=== PATIENT | male | born 1965 | race Caucasian/White ===

== ENCOUNTER 2016-06-24 00:27 | Day surgery (SDC) | payer OTHER ==
[~2016-06-24] VITALS: Ht 172.7 cm; Wt 79.4 kg
[2016-06-24] MEDS ORDERED: Sodium Chloride LOK Flush 10 mL Syringe IV PRN (06:00)
[2016-06-24] MEDS ORDERED: fentaNYL-PF 50 mCg/mL 2 mL Inj IVPUSH PRN (06:00)
[2016-06-24] MEDS ORDERED: 0.9% Sodium Chloride 1,000 ML IV SCH (06:00)
[2016-06-24] MEDS ORDERED: No current meds (09:06)
[2016-06-24 09:08] VITALS: BP 137/90; PULSE 68; RESP 16; O2SAT 97
[2016-06-24 09:51] VITALS: BP 104/63; PULSE 69; RESP 14; O2SAT 95
[2016-06-24 10:00] VITALS: BP 110/65; PULSE 73; RESP 14; O2SAT 97
[2016-06-24 10:08] VITALS: BP 108/65; PULSE 68; RESP 14; O2SAT 97
[2016-06-24 10:18] VITALS: BP 117/78; PULSE 72; RESP 16; O2SAT 98
[2016-06-24 10:28] VITALS: BP 115/81; PULSE 63; RESP 14; O2SAT 96
--- NOTE | 2016-06-24 12:59 | ENDO ---
[address] [address] ENDOSCOPY PROCEDURE PATIENT: FITO RUSSELL : 1965 MR#: [id number] ADMIT: 06/24/2016 JOB ID: [id number] DATE: 06/24/2016 PROCEDURE: Colonoscopy. INDICATIONS: Screening. The patient's ASA classification is 1. Mallampati score was 1. MEDICATIONS: 1. Versed 4 mg. 2. Fentanyl 100 mcg. INSTRUMENT USED: PCF H 180 AL. PREPARATION QUALITY: Was good. PROCEDURE DETAILS: After informed consent was obtained, the patient was brought into the GI suite, where he was placed on oxygen via nasal cannula and monitored with continuous pulse oximeter, telemetry and blood pressure monitoring. A time-out was performed. Then, he was placed in the left lateral decubitus position and medications were administered for sedation. Digital rectal examination with palpation of the prostate was performed, which was unremarkable. The colonoscope was then inserted into the rectum and advanced under direct visualization to the cecum, which was identified by the presence of the ileocecal valve and appendiceal orifice. Once the cecum was reached, colonoscope was withdrawn back in the rectum. Mucosa and lumen were examined. In the rectum, retroflexion was performed. Following retroflexion, remaining air in the rectum was suctioned, and procedure was completed. FINDINGS: 1. In the ascending colon, there was an approximately 5 mm sessile polyp that was removed with a cold snare. 2. In the distal rectum on retroflexion, there was a diminutive polyp was removed with cold biopsy forceps. IMPRESSION: 1. Ascending colon polyp. 2. Distal rectal polyp. RECOMMENDATIONS: Repeat colonoscopy in five years, sooner if symptoms should dictate. COMPLICATIONS: None. ESTIMATED BLOOD LOSS: Less than 5 mL.
--- NOTE | 2016-06-27 12:57 | PATH ---
SURGICAL PATHOLOGY Attending Physician:Paty Griffiths CASE STATUS: Signed Out PATIENT NAME: FITO RUSSELL PID: [id number] : 1965 DATE COLLECTED:06/24/2016 17:13 SPECIMEN: 1: Colon, Biopsy 2: Rectum, Biopsy CLINICAL HISTORY: 1. ASCENDING COLON POLYP X1 3. 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 2.RECTAL POLYP: HYPERPLASTIC POLYP INVOLVING BOTH BIOPSY FRAGMENTS. ICD10 CODE D12.2 GROSS DESCRIPTION: The specimen is received in two formalin filled containers labeled with the patient's name. 1). The specimen is sublabeled "ascending colon polyp" and consists of 4 portions of tissue which aggregate to 0.3 x 0.3 x 0.2 CM. The specimen is entirely submitted in cassette 1A. 2). The specimen is sublabeled "rectal polyp" and consists of 2 portions of tissue which aggregate to 0.3 x 0.2 x 0.2 CM. The specimen is entirely submitted in cassette 2A. 06/24/2016 [facility] MICRO DESCRIPTION: See diagnosis. ICD-9 CODES: CPT CODES: 1: 10201 2: 56336 Electronically Signed Out Robby Prince MD [facility] Pathology [facility] [address], [place] [address] Technical component performed at [facility], [address] [place] [address] Ave[address], [address]
== END 2016-06-24 23:59 | disposition home or self-care (01) ==
LOC: END 00:27
PROVIDERS: ATTEND Internal Medicine Gastroenterology
DX: Z12.11 Encounter for screening for malignant neoplasm of colon (principal); D12.2 Benign neoplasm of ascending colon; K62.1 Rectal polyp; F17.290 Nicotine dependence, other tobacco product, uncomplicated; K86.1 Other chronic pancreatitis
CPT/HCPCS: 45380; 45385; G0500; J7030